=== PATIENT | male | born 1965 | race Caucasian/White ===

== ENCOUNTER 2023-04-21 12:30 | Emergency (ER) | payer BC ==
[~2023-04-21] VITALS: Ht 177.8 cm; Wt 102.1 kg
[2023-04-21 12:30] VITALS: BP_SYST 211; PULSE 80; RESP 19; TEMP 96.8; O2SAT 98
[~2023-04-21 12:30] MED LIST: ETOMIDATE 20 MG/ 10 ML VIAL (AMIDATE) ONE; VECURONIUM BROMIDE 10 MG/VIAL (NORCURON) ONE
[2023-04-21] MEDS ORDERED: TENECTEPLASE 50 MG VIAL IV ONE (12:45)
[2023-04-21] MEDS ORDERED: NORMAL SALINE 5 ML DISP.SYRIN IVF ONE (12:45)
[2023-04-21] MEDS ORDERED: DEXTROSE 50% JECT 50 ML DISP.SYRIN IVP PRN (12:45)
[2023-04-21] MEDS ORDERED: ACETAMINOPHEN 650 MG SUPP.RECT RC PRN (12:45)
[2023-04-21] MEDS ORDERED: niCARdipine 25 MG in D5W 240 ML IV PRN (12:45)
[2023-04-21 13:26] LABS: BASOPHILS # (AUTO) 0.1 K/uL (0.0-0.2); BASOPHILS % (AUTO) 0.7 % (0.0-2.0); EOSINOPHILS # (AUTO) 0.3 K/uL (0.0-0.4); EOSINOPHILS % (AUTO) 3.8 % (0.0-4.0); HEMATOCRIT 41.1 % (36-54); HEMOGLOBIN 13.7 g/dL (14.0-18.0); LYMPHOCYTES # (AUTO) 1.8 K/uL (1.0-5.5); LYMPHOCYTES % (AUTO) 25.7 % (20.5-51.5); MEAN CORPUSCULAR HEMOGLOBIN 32 pg (27-31); MEAN CORPUSCULAR HGB CONC 33 % (32-36); MEAN CORPUSCULAR VOLUME 96 fL (79.0-98.0); MONOCYTES # (AUTO) 0.5 K/uL (0.0-1.0); MONOCYTES % (AUTO) 7.6 % (1.7-9.3); NEUTROPHILS # (AUTO) 4.4 K/uL (1.8-7.7); NEUTROPHILS % (AUTO) 62.2 % (40.0-70.0); PLATELET COUNT (AUTO) 263 K/uL (130-430); RED CELL DISTRIBUTION WIDTH 13.5 % (9.0-15.0); WHITE BLOOD COUNT (AUTO) 7.1 K/uL (4.8-10.8)
[2023-04-21] MEDS ORDERED: fentaNYL CITRATE/PF 100 MCG/2 ML AMP ONE (13:29)
[2023-04-21] MEDS ORDERED: PROPOFOL DRIP 100 ML IV ONE ×4 (13:30→14:45)
[2023-04-21] MEDS ORDERED: VECURONIUM BROMIDE 10 MG/VIAL (NORCURON) IVP ONE (13:30)
[2023-04-21] MEDS ORDERED: fentaNYL CITRATE/PF 100 MCG/2 ML AMP IVP ONE ×2 (13:30)
[2023-04-21] MEDS ORDERED: ETOMIDATE 20 MG/ 10 ML VIAL (AMIDATE) IVP ONE (13:30)
[2023-04-21] MEDS ORDERED: LIDOCAINE JECT 2% PF 100 MG/5ML SYRINGE IVP ONE (13:30)
[2023-04-21] MEDS ORDERED: DEXAMETHASONE SOD PHOSPHATE 10 MG/ML VIAL IVP ONE (13:45)
[2023-04-21 13:47] LABS: ANION GAP 12 (5-15); CALCIUM 7.2 mg/dL (8.4-11.0); CARBON DIOXIDE 21 mmol/L (23-29); CHLORIDE 101 mmol/L (98-107); CREATININE 0.93 mg/dL (0.55-1.30); GFR AFRICAN AMERICAN 107 mL/min (>90); GLUCOSE 203 mg/dL (74-106); POTASSIUM 3.4 mmol/L (3.5-5.1); SODIUM SERUM 134 mmol/L (136-145); UREA NITROGEN, BLOOD 21 mg/dL (8-21)
[2023-04-21 13:49] LABS: GFR NON AFRICAN-AMERICAN 88 mL/min (>90)
[2023-04-21 13:53] LABS: ALANINE AMINOTRANSFERASE 37 U/L (12-78); ALBUMIN 3.5 g/dL (3.4-4.8); ASPARTATE AMINOTRANSFERASE 27 U/L (10-37); CHOLESTEROL 216 mg/dL (<200); CREATINE KINASE, TOTAL 349 U/L (39-308); HDL CHOLESTEROL 62 mg/dL (>45); TOTAL BILIRUBIN 0.6 mg/dL (0.0-1.0); TOTAL PROTEIN, SERUM 6.4 g/dL (6.4-8.3); TRIGLYCERIDES 101 mg/dL (30-150)
[2023-04-21 13:56] LABS: HEMOGLOBIN A1C 5.55 % (<5.7)
[2023-04-21 14:18] LABS: PROTHROMBIN TIME 10.5 SECS (9.5-12.5)
[2023-04-21 14:22] LABS: ABG O2 SAT% ESTIMATE 99.8 % (94.0-100.0); BLOOD GAS BASE EXCESS -3.3 mmol/L (-3.0-3.0); BLOOD GAS HCO3 22.2 mmol/L (21.0-27.0); BLOOD GAS PCO2 41.5 mmHg (32.0-45.0); BLOOD GAS PH 7.346 (7.350-7.450); BLOOD GAS PO2 369.5 mmHg (75.0-100.0)
[2023-04-21 14:28] LABS: ALLEN'S TEST POSITIVE (P)
[2023-04-21 14:29] LABS: LIPASE 74 U/L (73-393)
[2023-04-21 14:45] VITALS: BP_SYST 130; PULSE 89; RESP 16; TEMP 97.9; O2SAT 100
[2023-04-21 15:12] LABS: CKMB RELATIVE INDEX 1.6 (0.0-2.9); CREATINE KINASE MB 5.5 ng/mL (0-3.6)
== END 2023-04-21 14:45 | disposition short-term general hospital (02) ==
LOC: SED 12:30
DX: I61.8 Other nontraumatic intracerebral hemorrhage (principal); R41.82 Altered mental status, unspecified; R51.9 Headache, unspecified; I10 Essential (primary) hypertension; Z85.841 Personal history of malignant neoplasm of brain; Z79.899 Other long term (current) drug therapy
CPT/HCPCS: 99291; 70496; 31500; 96374; 96375; 80061; 80053; 82550; 82553; 83037; 83690; 85025; 85610; 85730; 86886; 86900; 86901; 84484; 36415; 70498; 82803; 93005; 70450; 36600; 96376; 80048; 76376; J1100; J3490 ×2; J2704; J3010; J7060; 94002